=== PATIENT | male | born 1965 | race Caucasian/White ===

== ENCOUNTER 2022-07-08 03:32 | Emergency (ER) | payer SELFPAY ==
[~2022-07-08] VITALS: Ht 177.8 cm; Wt 84.0 kg
[2022-07-08 03:42] VITALS: BP 150/90
--- NOTE | 2022-07-08 03:42 | ED EENT ---
History of Present Illness General Chief Complaint: Eye Problems Stated Complaint: RT EYE PAIN,POKED IN EYE W/TREE LIMB History of Present Illness Date Seen by Provider: Jul 08, 2022 Time Seen by Provider: 03:42 Initial Comments 56-year-old male presents with right a eye pain. He reports he was poked in the eye about 6 hours prior to arrival and is continue to have eye pain. He presents due to the pain. No reports of vision change. Allergies and Home Medications Allergies Coded Allergies: Penicillins (Verified Allergy, Unknown, 07/08/22) Patient Home Medication List Home Medication List Reviewed: Yes Review of Systems Review of Systems Constitutional: no symptoms reported Eyes: See HPI Ears: No Symptoms Reported Nose: no symptoms reported Mouth: no symptoms reported Throat: no symptoms reported Respiratory: no symptoms reported Physical Exam Vital Signs Vital Signs - First Documented 07/08/22 03:42 Temp 36.5 Pulse 83 Resp 16 B/P (MAP) 150/90 (110) Pulse Ox 99 O2 Delivery Room Air Height, Weight, BMI Height: '" Weight: lbs. oz. kg; BMI Method: General Appearance: WD/WN, no apparent distress Eyes: right eye corneal abrasion (Large corneal abrasion/ulcer) Cardiovascular: normal peripheral pulses, regular rate, rhythm Respiratory: lungs clear, normal breath sounds, no respiratory distress Gastrointestinal: non tender, soft Neurologic/Psychiatric: alert, normal mood/affect, oriented x 3 Progress/Results/Core Measures Results/Orders My Orders Orders - PROMISE GARNER DO Fluorescein Strips ([id number]) (07/08/22 03:44) Tetracaine 0.5% Ophth Fariha Sdv (Tetracai (07/08/22 03:44) Medications Given in ED Current Medications Medications Dose Ordered Sig/Justo Route Start Time Stop Time Status Last Admin Dose Admin Fluorescein Sodium 1 mg STK-MED ONCE .ROUTE 07/08/22 03:44 07/08/22 03:45 DC 07/08/22 03:47 1 MG Tetracaine HCl 4 ml STK-MED ONCE .ROUTE 07/08/22 03:44 07/08/22 03:45 DC 07/08/22 03:47 4 ML Vital Signs/I&O 07/08/22 03:42 Temp 36.5 Pulse 83 Resp 16 B/P (MAP) 150/90 (110) Pulse Ox 99 O2 Delivery Room Air Progress Progress Note : Progress Note Patient treated with tetracaine and then fluorescein stain under Clark lamp. Patient with a large corneal abrasion/ulcer noted. Patient was started on ofloxacin eyedrops. Patient is to call [facility] eye clinic tomorrow morning to see about an appointment time. He is stable and discharged Departure Impression Primary Impression: Corneal abrasion Qualified Codes: S05.01XA - Injury of conjunctiva and corneal abrasion without foreign body, right eye, initial encounter Disposition: HOME, SELF-CARE Condition: Stable Departure-Patient Inst. Referrals: JESSE ROSE MD (PCP/Family) Primary Care Physician Patient Instructions: Corneal Ulcer (DC), Corneal Abrasion (DC) Add. Discharge Instructions: Please use ofloxacin eyedrops every 2 hours for the next 2 days then 4 times daily for the next 5 days. Please call [facility] eye clinic [phone] tomorrow morning to make an appointment time. If there is an emergent number please call that and tell them you are seen in the ER and we would like you to follow-up. All discharge instructions reviewed with patient and/or family. Voiced u nderstanding. PROMISE GARNER DO Jul 08, 2022 03:42
[2022-07-08] MEDS ORDERED: TETRACAINE 0.5% OPHTH SOLN 4 ML BTL (SINGLE DOSE ONLY) ONE (03:44)
[2022-07-08] MEDS ORDERED: FLUORESCEIN (FLUOR-I-STRIPS) 1 MG STRP ONE (03:44)
[2022-07-08] MEDS ORDERED: RX-OFLOXACIN 0.3% OPHTH SOLN 5 ML ONE (03:53)
== END 2022-07-08 04:05 | disposition home or self-care (01) ==
LOC: ER 03:37
DX: S05.01XA Injury of conjunctiva and corneal abrasion without foreign body, right eye, initial encounter (principal); Z28.310 Unvaccinated for COVID-19; W26.8XXA Contact with other sharp object(s), not elsewhere classified, initial encounter
CPT/HCPCS: 99281

== ENCOUNTER → 2022-10-03 | Outpatient (CLI) | payer SELFPAY ==
--- NOTE | 2022-10-03 10:36 | Diagnostic Imaging Report ---
EXAMINATION: Magnetic resonance imaging of the left shoulder without contrast. DATE: October 03, 2022. COMPARISON: None. HISTORY: 56-year-old male, left shoulder pain. TECHNIQUE: Magnetic Resonance Imaging sequences were performed of the shoulder without contrast. FINDINGS: ROTATOR CUFF, LIGAMENTS, TENDONS, AND MUSCLES: There is a full thickness, full width tear of the supraspinatus tendon with the tear occurring approximately 15 mm proximal to the humeral attachment site. The tear measures 12 mm in medial to lateral extent with the torn and retracted portion of the tendon at the level of the superior humeral head. The infraspinatus and teres minor tendons are intact. The subscapularis tendon is intact. There is no fatty muscle atrophy. There is very low level edema in the supraspinatus muscle. LONG HEAD OF BICEPS: The biceps labral attachment and long head of the biceps tendon are intact. The long head of the biceps tendon is normally positioned within the bicipital groove. GLENOHUMERAL JOINT: The humeral head is well positioned relative to the glenoid. The labrum is grossly intact. There is no identified paralabral cyst. The articular cartilage is grossly intact. There is no joint effusion. ACROMIOCLAVICULAR JOINT: The acromioclavicular joint is normally aligned. The coracoclavicular and coracoacromial ligaments are intact. There are mild acromioclavicular degenerative changes without large undersurface osteophyte. BONE: There is no os acromiale. There is no Hill-Sachs deformity. There is no acute fracture, bone contusion, or evidence of osteonecrosis. There is degenerative related edema adjacent to the acromioclavicular joint. BURSAE AND SOFT TISSUES: The bursae and soft tissue surrounding the shoulder are unremarkable. IMPRESSION: 1. Full thickness, full width tear of the supraspinatus tendon occurring approximately 15 mm proximal to its humeral insertion with the tear measuring 12 mm in medial to lateral extent and the torn and retracted tendon at the level of the superior humeral head. 2. No fatty muscle atrophy. Very low level edema in the supraspinatus muscle which may reflect low-grade muscle strain. Early denervation related signal changes would also be considered. 3. Mild acromioclavicular degenerative changes without large undersurface osteophyte. 4. No acute fracture, bone contusion, or evidence of osteonecrosis. 5. Grossly intact labrum and unremarkable additional glenohumeral joint assessment. Dictated by: Dictated on workstation # [id number]
== END ==
LOC: RAD 09:30
PROVIDERS: ATTEND Pediatrics
DX: M75.102 Unspecified rotator cuff tear or rupture of left shoulder, not specified as traumatic (principal); M19.012 Primary osteoarthritis, left shoulder; X58.XXXA Exposure to other specified factors, initial encounter
CPT/HCPCS: 73221